=== PATIENT | female | born 1985 | race Caucasian/White ===

== ENCOUNTER 2016-10-19 17:49 | Emergency (ER) | payer OTHER ==
[~2016-10-19] VITALS: Ht 170.2 cm; Wt 86.2 kg
[2016-10-19 17:50] VITALS: BP 127/89
[2016-10-19] MEDS ORDERED: HYDR-971 PO ×2 (18:11→18:48)
[2016-10-19] MEDS ORDERED: AMOX1TAB61 PO ×2 (18:11→18:48)
--- NOTE | 2016-10-19 18:11 | PHYS DOC ---
Past Medical History Past Medical History: Anxiety, Other Additional Past Medical Histor: ADHD Past Surgical History: No Surgical History Additional Information: PACK A DAY Alcohol Use: Occasionally Drug Use: None Adult General Chief Complaint Chief Complaint: ANIMAL BITE HPI HPI Patient is a 31 year old female with history of anxiety who presents with dog bites to the right forearm. Patient states she got bit by one of her dogs when she was trying to separate them in a fight. The dogs are up-to-date with their shots, patient is up-to-date with her shots. Review of Systems Review of Systems Constitutional: Denies fever or chills [] Musculoskeletal: Denies back pain or joint pain [] Integument: Dog bites to the right forearm Neurologic: Denies headache, focal weakness or sensory changes [] Endocrine: Denies polyuria or polydipsia [] Current Medications Current Medications Current Medications Medications (Trade) Dose Ordered Sig/Shirley Start Time Stop Time Status Last Admin Dose Admin Acetaminophen/ Hydrocodone Bitart (Lortab 5/325) 1 tab 1X ONCE 10/19/16 18:15 10/19/16 18:16 DC 10/19/16 18:19 1 TAB Neomycin/ Polymyxin/ Bacitracin (Triple Antibiotic Ointment) 1 pkt 1X ONCE 10/19/16 18:15 10/19/16 18:16 DC 10/19/16 18:19 1 PKT Ondansetron HCl (Zofran Odt) 4 mg 1X ONCE 10/19/16 18:15 10/19/16 18:16 DC 10/19/16 18:19 4 MG Allergies Allergies Allergies Coded Allergies Type Severity Reaction Last Updated Verified No Known Drug Allergies 10/19/16 No Physical Exam Physical Exam Constitutional: Well developed, well nourished, no acute distress, non-toxic appearance. [] Skin: Right forearm with to two bites one on the ventral aspect and another one on the dorsal aspect. Each of them is approximately 1 cm. Neurovascular exam is intact to the right forearm. Back: No tenderness, no CVA tenderness. [] Extremities: No tenderness, no cyanosis, no clubbing, ROM intact, no edema. [] Neurologic: Alert and oriented X 3, normal motor function, normal sensory function, no focal deficits noted. [] Psychologic: Affect normal, judgement normal, mood normal. [] Current Patient Data Vital Signs Vital Signs Date Time Temp Pulse Resp B/P (MAP) Pulse Ox O2 Delivery O2 Flow Rate FiO2 10/19/16 18:19 18 98 Room Air 10/19/16 17:50 98.6 88 98.6 EKG EKG [] Radiology/Procedures Radiology/Procedures [] Course & Med Decision Making Course & Med Decision Making Pertinent Labs and Imaging studies reviewed. (See chart for details) Patient has two dog bites to the right forearm. They were cleaned thoroughly Neosporin applied to the area, patient was discharged with Augmentin. Tetanus is up-to-date. Follow-up with PCP in 1-2 weeks. Dragon Disclaimer Dragon Disclaimer This electronic medical record was generated, in whole or in part, using a voice recognition dictation system. Departure Departure Impression: Primary Impression: Dog bite of right forearm Disposition: 01 HOME, SELF-CARE Condition: STABLE Patient Instructions: Animal Bite, [id number] Additional Instructions: You were seen for dog bites to the right forearm. Keep the area clean and dry. Apply Neosporin to the area twice a day. Ensure you complete your antibiotics. The clemente too many bites is keeping them clean and dry and completing your antibiotics. Monitor the areas for signs and symptoms of infection including increased redness, increased warmth or odor/yellow/uncontrolled drainage from the areas return to the ED if they occur or see your doctor. 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/19/16 Ondansetron (ZOFRAN ODT) 4 Mg Tab.rapdis 1 TAB SL Q8HRS, #15 TAB Prov: [facility] [employer] 10/19/16 Amoxicillin/Potassium Clav (AUGMENTIN 875-125 TABLET) 1 Each Tablet 1 TAB PO BID, #20 TAB Prov: [place] [employer] SUPERVISOR 10/19/16 Amoxicillin/Potassium Clav (AUGMENTIN 875-125 TABLET) 1 Each Tablet 1 TAB PO BID, #20 TAB Prov: [facility] [employer]PER[employer] 10/19/16 Hydrocodone/Apap 5-325 (NORCO 5-325 TABLET) 1 Each Tablet 1-2 TAB PO Q4-6HRS, #20 TAB Prov: [facility] [employer] 10/19/16 Problem Qualifiers Primary Impression: Dog bite of right forearm Encounter type: initial encounter Qualified Codes: S51.851A - Open bite of right forearm, initial encounter; W54.0XXA - Bitten by dog, initial encounter [facility] APRN Oct 19, 2016 18:11
[2016-10-19] MEDS ORDERED: NEOMY/BACITR/POLYMYXIN OINT PACKET. TP ONE (18:15)
[2016-10-19] MEDS ORDERED: ONDANSETRON ODT 4 MG TAB.RAPDIS. PO ONE (18:15)
[2016-10-19] MEDS ORDERED: HYDROcodone/APAP 5/325MG 1 TAB TABLET PO ONE (18:15)
[2016-10-19] MEDS ORDERED: ONDA4TAB10 SL (18:48)
== END 2016-10-19 18:50 | disposition home or self-care (01) ==
LOC: ER 17:49
DX: S51.851A Open bite of right forearm, initial encounter (principal); F41.9 Anxiety disorder, unspecified; F90.9 Attention-deficit hyperactivity disorder, unspecified type; F17.200 Nicotine dependence, unspecified, uncomplicated; W54.0XXA Bitten by dog, initial encounter; Y93.89 Activity, other specified; Y92.89 Other specified places as the place of occurrence of the external cause; Y99.8 Other external cause status
CPT/HCPCS: 99284; Q0162